=== PATIENT | male | born 2000 | race Caucasian/White ===

== ENCOUNTER 2022-12-17 20:41 | Emergency (ER) | payer OTHER ==
[2022-12-17] MEDS ORDERED: Lidocaine 1% with EPINEPHrine 1:100,000 20 ML MDV INJECT ONE (21:01)
[2022-12-17] MEDS ORDERED: Diphtheria,Pertussis(Acell),Tetanus Vaccine 0.5 ML Syringe IM ONE (21:07)
[2022-12-17] MEDS ORDERED: Lidocaine 1% 10 ML MDV INJECT ONE ×2 (21:07)
== END 2022-12-17 21:54 | disposition home or self-care (01) ==
LOC: JD.ED 20:41
DX: S01.01XA Laceration without foreign body of scalp, initial encounter (principal); Z23 Encounter for immunization; W22.09XA Striking against other stationary object, initial encounter
CPT/HCPCS: 12002; 90471; 90715; 99282; 99283-25; J3490